=== PATIENT | male | born 1965 | race Hispanic/Latino ===

== ENCOUNTER 2016-06-03 11:08 | Inpatient (IN) | payer OTHER ==
--- NOTE | 2016-06-03 11:31 | Emergency Department Report ---
Stated Complaint: EXTREME STOMACH PAIN Time Seen by Provider: 06/03/16 11:17 - HPI History of Present Illness: 51-year-old male comes in for complaint of extreme stomach pain. Patient reports that he came home 8 some djiboutian fries and a [place] cheese sandwiches started to have epigastric pain. Denies any nausea vomiting no fever no chills. - Exam Physical Exam: Since alert in obvious pain. Abdomen soft and very tender to the mid epigastric . Umbilicus a area. MSE screening note: Focused history and physical exam performed. Due to findings the following was ordered: Abominal order set and ekg was order. Patient will be eval by Main ER ED Disposition for MSE Condition: Stable
[2016-06-03 11:50] LABS: Basophils % (Auto) 0.9 % (0.0-1.8); Eosinophils % (Auto) 1.3 % (0.0-4.3); Hematocrit 42.3 % (35.5-45.6); Hemoglobin 13.9 gm/dl (11.8-15.2); Mean Corpuscular HGB Conc 33 % (32-34); Mean Corpuscular Hemoglobin 32 pg (28-32); Mean Corpuscular Volume 97 fl (84-94); Platelet Count 273 K/mm3 (140-440); Red Blood Count 4.36 M/mm3 (3.65-5.03); Red Cell Distribution Width 13.9 % (13.2-15.2); White Blood Count 7.3 K/mm3 (4.5-11.0)
[2016-06-03 11:59] LABS: INR 1.07 (0.87-1.13)
[2016-06-03 12:00] LABS: Partial Thromboplastin Time 32.1 Sec. (24.2-36.6)
[2016-06-03 12:09] LABS: Creatine Kinase MB 2.1 ng/mL (0.0-4.0)
[2016-06-03 12:11] LABS: Creatine Kinase 137 units/L (55-170)
[2016-06-03 13:08] LABS: Alanine Aminotransferase 10 units/L (7-56); Albumin 4.2 g/dL (3.9-5); Albumin/Globulin Ratio 1.6 %; Alkaline Phosphatase 53 units/L (35-129); BUN/Creatinine Ratio 28.57; Bilirubin,Total < 0.2 mg/dL (0.1-1.2); Blood Urea Nitrogen 20 mg/dL (9-20); Calcium 8.8 mg/dL (8.4-10.2); Carbon Dioxide 23 mmol/L (22-30); Chloride 104.5 mmol/L (98-107); Glucose 126 mg/dL (75-100); Lipase 62 units/L (13-60); Potassium 3.4 mmol/L (3.6-5.0); Sodium 143 mmol/L (137-145); Total Protein 6.8 g/dL (6.3-8.2)
[2016-06-03 13:26] LABS: Anion Gap 19 mmol/L
[2016-06-03] MEDS ORDERED: DILAUDID ONE ×3 (13:35→17:48)
[2016-06-03] MEDS ORDERED: ZOFRAN ONE ×2 (13:35→15:25)
[2016-06-03] MEDS ORDERED: DILAUDID IV ONE ×2 (13:36→15:07)
[2016-06-03] MEDS ORDERED: ZOFRAN IV ONE (13:36)
[2016-06-03] MEDS ORDERED: NACL 0.9% 1000 ML 1,000 ML ONE (13:36)
[2016-06-03] MEDS ORDERED: NACL 0.9% 1000 ML 1,000 ML IV ONE ×2 (13:36→15:07)
[2016-06-03] MEDS ORDERED: VALIUM IV ONE (13:37)
[2016-06-03] MEDS ORDERED: PEPCID IV ONE (13:37)
[2016-06-03] MEDS ORDERED: NACL ONE (14:22)
--- NOTE | 2016-06-03 14:57 | Emergency Department Report ---
HPI - General Chief Complaint: Abdominal Pain Time Seen by Provider: 06/03/16 11:17 - HPI HPI: The patient is a 51-year-old male who presents with abduction abdominal pain. The patient reports sudden onset of severe abdominal pain at 9 AM this morning, constant since onset, 10 out of 10 in severity, throbbing in quality, and is exacerbated with movement of the abdomen. He also reports associated nausea without emesis. He shares that his symptoms began approximately 30 minutes to 1 hour after eating a meal. He was up all night working, but denies trauma to the abdomen. He also denies fever, chills, night sweats, diarrhea, blood in the stool, dark tarry stool, dysuria, hematuria, flank pain, genital discharge, inability to pass flatus. ED Review of Systems ROS: Stated complaint: EXTREME STOMACH PAIN Other details as noted in HPI Constitutional: denies: fever ENT: denies: throat or neck pain Respiratory: denies: cough, shortness of breath Cardiovascular: denies: chest pain Endocrine: denies unexplained weight loss or gain Gastrointestinal: reports abdominal pain, nausea Genitourinary: denies: dysuria Musculoskeletal: denies: leg swelling Skin: denies: rash Neurological: denies: headache Hematological/Lymphatic: denies: easy bleeding or easy bruising Psych: denies sadness or hopelessness Physical Exam - Physical Exam Vital Signs: Vital Signs 06/03/16 06/03/16 06/03/16 11:35 11:48 12:00 Temperature 98.8 F Pulse Rate 103 H Respiratory 21 19 Rate Blood Pressure 106/64 105/72 O2 Sat by Pulse 99 98 Oximetry 06/03/16 06/03/16 06/03/16 13:00 13:01 14:00 Temperature Pulse Rate Respiratory 18 24 27 H Rate Blood Pressure 130/76 123/81 O2 Sat by Pulse 99 98 97 Oximetry Physical Exam: General: well-nourished, well-developed, no acute distress Head: Normocephalic, atraumatic Eyes: normal sclera ENT: Mucous membranes are pink and moist Neck: trachea midline, neck supple, No neck stiffness, no cervical adenopathy Respiratory: Breath sounds equal bilaterally, no wheezing, rales, or rhonchi Cardio: S1 and S2 present, no murmurs, rubs, gallops, capillary refill is brisk Abdomen: Normoactive bowel sounds, patient guarding abdomen, severe tenderness out of proportion present, generalized tenderness to palpation present, rebound tenderness present Chest WALL/Back: No tenderness to palpation of the chest wall, no CVA tenderness with percussion Musc: No pitting edema Skin: No rash Neuro: no facial drooping, normal speech Psych: Normal affect ED Course Vital Signs 06/03/16 06/03/16 06/03/16 11:35 11:48 12:00 Temperature 98.8 F Pulse Rate 103 H Respiratory 21 19 Rate Blood Pressure 106/64 105/72 O2 Sat by Pulse 99 98 Oximetry 06/03/16 06/03/16 06/03/16 13:00 13:01 14:00 Temperature Pulse Rate Respiratory 18 24 27 H Rate Blood Pressure 130/76 123/81 O2 Sat by Pulse 99 98 97 Oximetry ED Medical Decision Making - Lab Data Result diagrams: 06/03/16 11:35 06/03/16 11:35 - Medical Decision Making The patient was seen and examined by myself. The patient is placed on a hospital monitor and continuous pulse ox. On initial evaluation, the patient was found to be in no distress. Evaluation orders were placed. The patient given IV Dilaudid for his pain. 1 L normal saline fluid bolus given. Lab results are grossly unrevealing. CAT scan of the abdomen reveals free intraperitoneal air, ascites, likely secondary to a small bowel perforation. The patient is given Zosyn. The on-call general surgeon Dr. Santoyo was contacted. He agreed to take the patient to the OR for emergent laparotomy. An NG tube was placed and preop labs and imaging were obtained. EKG was grossly unremarkable. X-ray of the chest is unremarkable. The patient is transferred in guarded condition to the operating room. Critical care attestation.: If time is entered above; I have spent that time in minutes in the direct care of this critically ill patient, excluding procedure time. ED Disposition Clinical Impression: Small bowel perforation, Acute generalized abdominal pain Disposition: OP ADMITTED IP TO THIS HOSP Is pt being admited?: Yes Does the pt Need Aspirin: Yes Condition: Critical Referrals: PRIMARY CARE, [Primary Care Provider] - 3-5 Days Time of Disposition: 14:50
[2016-06-03 14:58] LABS: Creatine Kinase MB 1.7 ng/mL (0.0-4.0)
[2016-06-03] MEDS ORDERED: ZOSYN/NS 3.375GM/50ML 50 ML IV SCH (15:00)
--- NOTE | 2016-06-03 15:11 | Cat Scan Report ---
CT ABDOMEN AND PELVIS WITH CONTRAST INDICATION: Periumbilical abdominal pain. COMPARISON: None similar at this institution. FINDINGS: Abdomen and pelvis CT performed following intravenous administration of 100 cc of Omnipaque 300. LUNG BASES: Mild bibasilar dependent atelectasis. Nonspecific distal esophageal wall thickening, not excluded for gastroesophageal reflux and/or hiatal hernia, amongst others. ABDOMEN: Free intraperitoneal air noted, most anterior to the liver with small amount of perihepatic ascites as well. No radiopaque gallstones or renal calculi. Left hepatic lobe tip extends well into the left upper quadrant. Otherwise unremarkable liver, spleen, pancreas, adrenals, nonaneurysmal abdominal aorta with few atherosclerotic calcifications, IVC and non-hydronephrotic kidneys. No size significant adenopathy. Diffuse mesenteric haziness/stranding/edema noted. Nonopacified GI tract evaluation limited. Ingested fluid/debris mildly distends the stomach. Duodenum decompressed. Few jejunal loops in the left hemiabdomen though somewhat prominent/possibly thick walled with caliber of 3.7 cm on axial image 194, series 2 while another just medial to it contains fluid and air with possible mucosal/wall thickening and approximately 3.3 cm caliber as on axial image 193. Few right lower quadrant small bowel loops appear within normal limits. Fluid/slight stool fills the distal/terminal ileum and the ileocecal junction as on axial image 215, series 2. Mild to moderate ascending colon stool. Normal remainder colonic stool with limited distention. PELVIS: Few fluid filled pelvic small bowel loops measure up to 2.6 cm caliber, axial image 323, series 2. Small extraluminal air anteriorly also noted on axial image 320. Mild complex ascites measuring 32 HU, possibly hemorrhagic. Grossly unremarkable urinary bladder and the rectosigmoid. Few prostatic calcifications. Bony demineralization. Lumbar spine straightening with L2-L3 degenerative spurring and mild disc narrowing as also moderate to severe L5-S1 disc narrowing with vacuum phenomenon and mild spurring. CONCLUSION: 1. Pneumoperitoneum with small bowel CT appearance, as detailed above and suspicious for hollow viscus perforation. 2. Various other incidental findings, including small abdomen and pelvic ascites, distal esophageal thickening and few lumbar degenerative changes, amongst others, as above. I phoned the above results to Dr. Durham in the ER, 2:50 PM, 06/03/2016. Thank you for the opportunity to participate in this patient's care.
[2016-06-03] MEDS ORDERED: DIPRIVAN 10 MG/ML IV ONE (15:24)
[2016-06-03] MEDS ORDERED: DECADRON ONE (15:25)
[2016-06-03] MEDS ORDERED: ZEMURON IV ONE ×2 (15:25→17:03)
[2016-06-03] MEDS ORDERED: XYLOCAINE MPF 2% ONE (15:25)
--- NOTE | 2016-06-03 15:31 | Anesthesia Consultation ---
Anesthesia Consult and Med Hx Date of service: 06/03/16 - Airway Anesthetic Teeth Evaluation: Poor ROM Head & Neck: Adequate Mental/Hyoid Distance: Adequate Mallampati Class: Class III Intubation Access Assessment: Probably Good - Pulmonary Exam CTA: Yes - Cardiac Exam Cardiac Exam: RRR - Pre-Operative Health Status ASA Pre-Surgery Classification: ASA2 Proposed Anesthetic Plan: General - Additional Comments Anesthesia Medical History Comments: 51 year old male presenting with exteme stomach pain. WBC 7.3, H/H 13.9/42.3. PLT 273. INR 1.07. K 3.4. NA 143. States NPO since 829
[2016-06-03] MEDS ORDERED: VERSED IV NR (16:00)
[2016-06-03] MEDS ORDERED: LACTATED RINGERS 1,000 ML IV SCH (16:00)
--- NOTE | 2016-06-03 16:22 | Admit Criteria Form ---
Admission Criteria Documentation: ABDOMINAL PAIN Clinical Indications for Admission to Inpatient Care (Place 'X' for any and all applicable criteria): Admission is indicated for ANY ONE of the following(1)(2)(3)(4)(5): [ X]I. Inpatient admission required rather than observation care (Also use Abdominal Pain: Observation Care, as appropriate) because of ANY ONE of the following: [X ]a) Severe pain requiring acute inpatient management [X ]b) Identification of etiology/finding that requires inpatient care (eg, aortic dissection, free air) [ ]c) Absent bowel sounds with complete ileus(6) [ ]d) Suspected toxic megacolon [ ]e) Severe electrolyte abnormalities requiring inpatient care [ ]f) High fever or infection requiring inpatient admission as indicated by ANY ONE of following(7)(8): [ ] i) Appropriate outpatient or observational care antimicrobial treatment unavailable, not effective, or not feasible [ ] ii) Documented bacteremia [ ] iii) Temperature > 104.9 degrees F (oral) [ ] iv) T >103.1 F (oral) or < 96.8 F(rectal) that does not respond to all emergency treatment measures [ ]g) Signs of intestinal obstruction [B] [ ]h) Hemodynamic instability [ ]i) IV fluid to replace significant ongoing losses (greater than 3 L/m2 per day) (12)(13) [ ]j) Percutaneous or open drainage (eg, abscess, biliary tract ) procedures [ ]k) Parenteral nutrition regimen that must be implemented on inpatient basis [ ]l) Other condition,treatment or monitoring requiring inpatient admission. [ X]II. Peritoneal signs present [ ]III. Surgery needed that cannot be performed on an ambulatory basis. [ ]IV. Evaluation requires patient to not eat or drink for extended period ( eg, more than 24 hours). [ ]V. Contraindications and/or Inappropriate clinical situations for Observational Care in patients with abdominal pain, when ANY ONE of the following is required: [ ]a) Thorough evaluation is required to prevent catastrophic events due to delays in diagnosing (e.g.Mesenteric ischemia) 1,3 [ ]b) Patient with severe pathology or with chronic symptoms unlikely to improve in the ED stay (3) [ ]. General contraindications and/or Inappropriate clinical situations for Observational Care in patients with abdominal pain, when ANY ONE of the following is required: [ ]a) Prediction of prolongation of LOS based on ANY ONE of the following may be considered as a contraindication for observational care 2, 3, 4, 5, 6, 7, 8, 9, 10, 11 [ ]i) Age > 65 yrs. [ ]ii) Patient arriving by ambulance [ ]iii) Patient with high acuity [ ]iv) Patient requiring vital sign monitoring [ ]v) Patient on IV medication [ ]b) Systolic blood pressures 180mmHg 3,12 [ ]c) Patient with altered mental status including delirium and other alteration of consciousness, (3) [ ]d) Patient whose discharge disposition will be to a snf home or rehabilitation home should not be managed in Emergency Department Observation Unit. CMS rule requires 3 days hospital stay before such placement.3,13 [ ]e) Patient with failure to thrive due to broad array of etiologies 3,16,17 [ ]f) Inability to ambulate 3,14 Extended stay beyond goal length of stay may be needed for(2)(3): [ ]a) Persistent abdominal pain with suspected intra-abdominal process [ ]b) Diagnosed condition requiring continued stay (e.g., pancreatitis, complicated diverticulitis) [ ]c) Surgery (e.g., colectomy) The original [facility] content created by [employer] has been revised. The portions of the content which have been revised are identified through the use of italic text or in bold, and [facility] has neither reviewed nor approved the modified material.All other unmodified content is copyright [employer]. Please see references footnoted in the original [facility] [employer] edition 2016 Admission Criteria Met: Yes
--- NOTE | 2016-06-03 16:23 | XRay Report ---
PORTABLE CHEST: INDICATION: Chest pain. COMPARISON: CT from earlier today. FINDINGS: Portable, frontal chest radiograph fails to well demonstrate known small pneumoperitoneum. Normal cardiomediastinal silhouette. Clear lungs, given the inspiration. No pleural effusions or CHF. EKG leads. Unremarkable bones. CONCLUSION: No acute chest radiographic abnormality in this patient with known pneumoperitoneum, as described. Thank you for the opportunity to participate in this patient's care.
[2016-06-03] MEDS ORDERED: ePHEDrine SULFATE ONE (16:58)
[2016-06-03] MEDS ORDERED: NACL 0.9% IR ONE (17:15)
[2016-06-03] MEDS ORDERED: ROBINUL ONE (17:30)
[2016-06-03] MEDS ORDERED: BLOXIVERZ ONE (17:31)
[2016-06-03] MEDS ORDERED: ZOFRAN IV PRN (17:40)
[2016-06-03] MEDS ORDERED: VERSED ONE (17:49)
[2016-06-03] MEDS ORDERED: DIFLUCAN 100 ML IV ONE (18:00)
--- NOTE | 2016-06-03 20:09 | Post Anesthesia Evaluation ---
- Post Anesthesia Evaluation Patient Participated: Yes Airway Patent: Yes Stable Respiratory Function: Yes Nausea/Vomiting: No Temp > 96.8F: Yes Pain Manageable: Yes Adequeate Hydration: Yes Anesthesia Complications: No Block Receding Appropriately: Not Applicable Patient on Ventilator: No
--- NOTE | 2016-06-03 21:33 | Operative Report ---
PREOPERATIVE DIAGNOSIS: Acute abdomen, rule out perforated viscus. POSTOPERATIVE DIAGNOSIS: Perforated peptic ulcer. PROCEDURES: Emergency exploratory laparotomy with Alan patch of perforated peptic ulcer. SURGEON: Baljeet Santoyo MD ANESTHESIA: General. ESTIMATED BLOOD LOSS: Minimal. DRAINS: None. COMPLICATIONS: None. DESCRIPTION OF PROCEDURE: The patient was taken to the operating room, prepped and draped in usual sterile fashion. A midline incision was made and abdomen entered. Upon entrance into the abdomen, some bile as well as some cloudy fluid was noted. Aerobic and anaerobic cultures were taken. The entire abdomen was irrigated copiously and suctioned dry. The patient was placed in a reverse Trendelenburg position. The liver was retracted and Babcocks were used to grasp the greater curvature of the stomach. The area around the pylorus was inspected and this was noted to be indurated. A careful inspection revealed a perforation in the prepyloric area. Omentum was then on laid and sutured over the perforation with interrupted 3-0 silk suture. The entire abdomen was once again copiously irrigated and suctioned dry. The patient was kept in a reverse Trendelenburg position as both gutters and subphrenic spaces were irrigated and suctioned. The pelvis was then also once again irrigated and suctioned. Rest of the abdomen was inspected and no other gross abnormalities noted. The NG tube was palpated and confirmed to be in proper placement within the gastric lumen. The fascia was then closed with interrupted #1 Vicryl suture. Subcutaneous tissues irrigated and skin loosely closed with rivera and packed with Telfa krish. The patient tolerated the procedure well and left the OR in stable condition. JOB# [id number] RISHABH/JOHN
[2016-06-03 21:39] LABS: Creatine Kinase MB 1.4 ng/mL (0.0-4.0)
[2016-06-03] MEDS: PROTONIX IV SCH (21:54)
[2016-06-03] MEDS: ZOSYN/NS 4.5GM/100ML 100 ML IV SCH (21:56)
--- NOTE | 2016-06-03 22:46 | History and Physical Report ---
REASON FOR ADMISSION: Acute abdomen. HISTORY OF PRESENT ILLNESS: The patient is a 51-year-old healthy gentleman who presented to Emergency Room with recent onset of severe abdominal pain. Denied any nausea or vomiting. PAST MEDICAL HISTORY: Negative. PAST SURGICAL HISTORY: Status post removal of subcutaneous cyst of the left neck. ALLERGIES: No known allergies. MEDICATIONS: No medications. FAMILY HISTORY: Negative. SOCIAL HISTORY: Smokes 2 packs a day for 37 years. Denies any ethanol intake. REVIEW OF SYSTEMS: Noncontributory. PHYSICAL EXAMINATION: GENERAL: At this time reveals the patient to be awake, alert, cooperative, in obvious distress. VITAL SIGNS: Temperature is not currently in the computer. Blood pressure is 118/85. Pulse is not in the computer either. Respiratory rate is 16. HEENT: Pupils are equal and reactive to light and accommodation. Sclerae nonicteric. NECK: Supple, no thyromegaly or adenopathy. CHEST: Lungs clear to auscultation. HEART: Normal sinus rhythm. No gross murmurs. ABDOMEN: Examination of the abdomen reveals to be flat and rigid with generalized tenderness. Bowel sounds are absent. EXTREMITIES: Show full range of motion x 4. NEUROLOGIC: Grossly within normal limits. LABORATORY DATA: Lab work at present includes a CBC which shows a white count of 7.3, H and H is 13.9 and 42.3. Electrolytes were essentially within normal limits. LFTs are also within normal limits. Lipase is 62. A CT scan of the abdomen has been performed, which I have reviewed with the radiologist. CT shows pneumoperitoneum, most likely perforation somewhere in the mid small bowel. Some ascites is also noted again presumably from the bowel perforation. IMPRESSION: At this time is that of a 51-year-old gentleman, rule out perforated viscus. Plan is to proceed with emergency exploratory laparotomy. Indications, risks, and complications have been reviewed with the patient who understands and has signed his consent. JOB# [id number] RISHABH/JOHN
[2016-06-04] MEDS: ZOSYN/NS 4.5GM/100ML 100 ML IV SCH ×3 (05:09→22:29)
[2016-06-04 05:35] LABS: Basophils % (Auto) 0.1 % (0.0-1.8); Hematocrit 35.3 % (35.5-45.6); Hemoglobin 11.8 gm/dl (11.8-15.2); Mean Corpuscular HGB Conc 34 % (32-34); Mean Corpuscular Hemoglobin 32 pg (28-32); Mean Corpuscular Volume 97 fl (84-94); Platelet Count 196 K/mm3 (140-440); Red Blood Count 3.65 M/mm3 (3.65-5.03); Red Cell Distribution Width 14.1 % (13.2-15.2)
[2016-06-04 05:51] LABS: Alanine Aminotransferase 18 units/L (7-56); Albumin 3.3 g/dL (3.9-5); Albumin/Globulin Ratio 1.3 %; Alkaline Phosphatase 38 units/L (35-129); Anion Gap 17 mmol/L; Bilirubin,Total 0.2 mg/dL (0.1-1.2); Blood Urea Nitrogen 15 mg/dL (9-20); Carbon Dioxide 24 mmol/L (22-30); Chloride 104.2 mmol/L (98-107); Glucose 135 mg/dL (75-100); Potassium 4.2 mmol/L (3.6-5.0); Sodium 141 mmol/L (137-145); Total Protein 5.8 g/dL (6.3-8.2)
[2016-06-04] MEDS: DILAUDID IV PRN ×4 (08:52→22:30)
[2016-06-04] MEDS: PROTONIX IV SCH (09:25)
[2016-06-04] MEDS ORDERED: DIFLUCAN/NS 100 MG/50 ML 50 ML IV SCH (10:00)
--- NOTE | 2016-06-04 10:44 | Consultation ---
History of Present Illness - Reason for Consult Consult date: 06/04/16 perforated bowel - History of Present Illness Mr. Burns is a 51-year-old male who denies chronic medical problems and presents for admission to with a 1 day history of severe abdominal pain and nausea. CT of the abdomen showed a pneumoperitoneum probably secondary to small bowel perforation. He underwent surgery now with evidence of a perforated peptic ulcer. The patient has no known previous history of GI disorders. He was unaware of any history of ulcer disease. He described sharp lower abdominal pain > 10/10 in intensity. Preliminary lab data now includes a white count of 9.0 with hemoglobin of 11.8 and platelet count of 196,000. MCV is elevated. Blood sugars is slightly elevated to 135. Lipase is 62. Patient's abdominal CT otherwise showed changes of DJD of the lumbosacral spine. There was also described distal esophageal "thickening". The patient is currently on IV Diflucan and Zosyn and is seen for further antibiotic recommendations. Medications and Allergies Allergies Allergy/AdvReac Type Severity Reaction Status Date / Time No Known Allergies Allergy Unverified 06/03/16 11:18 Home Medications Medication Instructions Recorded Confirmed Last Taken Type No Known Home Medications [No 06/03/16 06/03/16 Unknown History Reported Home Medications] Active Meds: Active Medications Hydromorphone HCl (Dilaudid) 1 mg IV Q3H PRN PRN Reason: Pain , Severe (7-10) Stop: 06/08/16 23:59 Last Admin: 06/04/16 08:52 Dose: 1 mg Lactated Ringer's (Lactated Ringers) 1,000 mls @ 150 mls/hr IV DIRECT PREET Potassium Chloride/Dextrose/Sod Cl (D5w/0.45% Nacl/Kcl 30 Meq) 1,000 mls @ 125 mls/hr IV DIRECT PREET Piperacillin Sod/Tazobactam Sod (Zosyn/Ns 4.5gm/100ml) 100 mls @ 200 mls/hr IV Q8HR PREET PRN Reason: Protocol Stop: 06/10/16 21:59 Last Admin: 06/04/16 05:09 Dose: 200 mls/hr Fluconazole (Diflucan/Ns 100 Mg/50 Ml) 50 mls @ 50 mls/hr IV Q24HR PREET Last Admin: 06/04/16 09:25 Dose: 50 mls/hr Ondansetron HCl (Zofran) 4 mg IV Q4H PRN PRN Reason: N/V unrelieved by Reglan Pantoprazole Sodium (Protonix) 40 mg IV QDAY PREET Last Admin: 06/04/16 09:25 Dose: 40 mg Review of Systems Gastrointestinal: abdominal pain, nausea Physical Examination - Physical Exam Narrative exam: Thin male seen postoperatively. NG tube in place. No distress. Abdominal dressings not disturbed. HEENT: Pupils are equal reactive to light and accommodation. Conjunctiva clear. Oropharynx is normal with no evidence of oral candidiasis or pharyngitis. Poor dentition noted. NECK: Supple. No enlargement of the thyroid gland. No significant cervical lymphadenopathy. No jugular venous distention at 30. LUNGS: Clear with no adventitious sounds. HEART: Regular rate. S1 and S2 are normal. There are no murmurs, gallops, clicks or rubs heard. ABDOMEN: Soft with mild generalized tenderness. Abdominal wound dressings are dry. No obvious organomegaly or masses. Bowel sounds not heard. EXTREMITIES: No rash, peripheral lymphadenopathy, clubbing or edema. SKIN: No other rash, ulcers or wounds. NEUROLOGIC: No focal findings. Alert and oriented. - Constitutional Vitals: Vital Signs Temp Pulse Resp BP Pulse Ox 98 F 90 16 133/86 97 06/04/16 07:15 06/04/16 07:15 06/04/16 08:52 06/04/16 07:15 06/04/16 07:15 Temperature -Last 24 Hours Temperature 98 F Temperature 98.5 F Temperature 99.2 F Temperature 97.6 F Temperature 98.6 F Temperature 99.6 F Results - Labs CBC & Chem 7: 06/04/16 04:47 06/04/16 04:47 Labs: Abnormal lab results 06/04/16 06/04/16 Range/Units 04:47 04:47 Hct 35.3 L D (35.5-45.6) % MCV 97 H (84-94) fl Lymph % (Auto) 5.1 L (13.4-35.0) % Lymph # 0.5 L (1.2-5.4) K/mm3 Seg Neutrophils % 88.0 H (40.0-70.0) % Seg Neutrophils # 7.9 H (1.8-7.7) K/mm3 Creatinine 0.5 L (0.8-1.5) mg/dL Glucose 135 H (75-100) mg/dL Calcium 8.0 L (8.4-10.2) mg/dL Total Protein 5.8 L (6.3-8.2) g/dL Albumin 3.3 L (3.9-5) g/dL Assessment and Plan Assessment: Mr. Burns is a 51-year-old male who denies chronic medical problems and presents for admission to with a 1 day history of severe abdominal pain and nausea. CT of the abdomen showed a pneumoperitoneum probably secondary to small bowel perforation. He underwent surgery now with evidence of a perforated peptic ulcer. Antibiotics: Diflucan 100 mg IV daily ( 06/04 - > Zosyn 4.5 g IV every 8 hour ( 06/03 - > Immunosuppressants: Decadron 20 mg IV 1 dose ( 06/03) Conclusions: 1. S/P exploratory laparotomy with finding of perforated peptic ulcer -R/O peritonitis 2. DJD - lumbar/sacral spine 3. Hyperglycemia- R/O "Stress" response versus occult DM 4. Anemia 5. Esophageal thickening by CT - ? Significance 6. Poor dentition Recommendations: - Continue IV Zosyn. Continue Diflucan at increased dose of 200 mg IV daily - Will check hemoglobin A1c level - Check B12 and folate levels with evidence of mild anemia and increased MCV - Consider upper endoscopy at a later time with evaluation of esophageal changes . - Continue supportive care.
[2016-06-04] MEDS ORDERED: DIFLUCAN 100 ML IV SCH (11:00)
[2016-06-04] MEDS ORDERED: FLUARIX QUAD 2016-2017(36 MOS+) IM ONE (11:01)
[2016-06-04] MEDS: D5W/0.45% NACL/KCL 30 MEQ 1,000 ML IV SCH ×2 (12:00→21:29)
--- NOTE | 2016-06-04 12:31 | Progress Note ---
Assessment and Plan POD # 1 Pt overall feeling well without any specific compl. Abd soft. dressings dry labs as below. stable monitor h/h ID eval appreciated Diflucan increased to 200 mg qd IS q 2 hrs ambulate as norbert f/u cbc now & in am Selected Entries 06/04/16 06/04/16 06/04/16 07:15 10:00 12:13 Temperature 98 F Respiratory 20 Rate Respiratory 16 Rate [Abdomen] Blood Pressure 133/86 [Left Arm] Laboratory Tests 06/04/16 04:47 WBC 9.0 Hgb 11.8 Hct 35.3 L D Objective Vital Signs - 12hr 06/04/16 06/04/16 06/04/16 01:10 01:40 05:01 Temperature 97.6 F 99.2 F 98.5 F Pulse Rate [ 96 H 94 H 98 H Brachial] Respiratory 20 20 20 Rate Respiratory Rate [Abdomen] Blood Pressure 130/84 121/76 127/83 [Left Arm] O2 Sat by Pulse 99 97 100 Oximetry 06/04/16 06/04/16 06/04/16 07:15 08:52 09:22 Temperature 98 F Pulse Rate [ 90 Brachial] Respiratory 18 16 16 Rate Respiratory Rate [Abdomen] Blood Pressure 133/86 [Left Arm] O2 Sat by Pulse 97 Oximetry 06/04/16 06/04/16 10:00 12:13 Temperature Pulse Rate [ Brachial] Respiratory 20 Rate Respiratory 16 Rate [Abdomen] Blood Pressure [Left Arm] O2 Sat by Pulse Oximetry - Labs 06/04/16 04:47 06/04/16 04:47 Diabetes panel 06/04/16 06/04/16 Range/Units 04:47 11:10 Sodium 141 (137-145) mmol/L Potassium 4.2 D (3.6-5.0) mmol/L Chloride 104.2 (98-107) mmol/L Carbon Dioxide 24 (22-30) mmol/L BUN 15 (9-20) mg/dL Creatinine 0.5 L (0.8-1.5) mg/dL Glucose 135 H (75-100) mg/dL Hemoglobin A1c 5.5 (4-6) % Calcium 8.0 L (8.4-10.2) mg/dL AST 22 (5-40) units/L ALT 18 (7-56) units/L Alkaline Phosphatase 38 (35-129) units/L Total Protein 5.8 L (6.3-8.2) g/dL Albumin 3.3 L (3.9-5) g/dL Calcium panel 06/04/16 Range/Units 04:47 Calcium 8.0 L (8.4-10.2) mg/dL Albumin 3.3 L (3.9-5) g/dL Pituitary panel 06/04/16 Range/Units 04:47 Sodium 141 (137-145) mmol/L Potassium 4.2 D (3.6-5.0) mmol/L Chloride 104.2 (98-107) mmol/L Carbon Dioxide 24 (22-30) mmol/L BUN 15 (9-20) mg/dL Creatinine 0.5 L (0.8-1.5) mg/dL Glucose 135 H (75-100) mg/dL Calcium 8.0 L (8.4-10.2) mg/dL Adrenal panel 06/04/16 Range/Units 04:47 Sodium 141 (137-145) mmol/L Potassium 4.2 D (3.6-5.0) mmol/L Chloride 104.2 (98-107) mmol/L Carbon Dioxide 24 (22-30) mmol/L BUN 15 (9-20) mg/dL Creatinine 0.5 L (0.8-1.5) mg/dL Glucose 135 H (75-100) mg/dL Calcium 8.0 L (8.4-10.2) mg/dL Total Bilirubin 0.2 (0.1-1.2) mg/dL AST 22 (5-40) units/L ALT 18 (7-56) units/L Alkaline Phosphatase 38 (35-129) units/L Total Protein 5.8 L (6.3-8.2) g/dL Albumin 3.3 L (3.9-5) g/dL
[2016-06-04 13:53] LABS: Basophils % (Auto) 0.1 % (0.0-1.8); Hematocrit 37.5 % (35.5-45.6); Hemoglobin 12.3 gm/dl (11.8-15.2); Mean Corpuscular HGB Conc 33 % (32-34); Mean Corpuscular Hemoglobin 32 pg (28-32); Mean Corpuscular Volume 97 fl (84-94); Platelet Count 223 K/mm3 (140-440); Red Blood Count 3.87 M/mm3 (3.65-5.03); White Blood Count 10.5 K/mm3 (4.5-11.0)
[2016-06-04 17:30] LABS: Bilirubin,Urine NEG (Negative); Blood,Urine SM (Negative); Ketones,Urine NEG (Negative); Leukocyte Esterase,Urine MOD (Negative); Mucus,Urine FEW /HPF; Nitrite,Urine NEG (Negative); Protein,Urine <15 mg/dL mg/dL (Negative); Urobilinogen,Urine < 2.0 mg/dL (<2.0)
[2016-06-05] MEDS: DILAUDID IV PRN ×4 (04:48→20:26)
[2016-06-05] MEDS: D5W/0.45% NACL/KCL 30 MEQ 1,000 ML IV SCH ×2 (06:26→17:30)
[2016-06-05] MEDS: ZOSYN/NS 4.5GM/100ML 100 ML IV SCH ×3 (06:26→23:35)
[2016-06-05 06:32] LABS: Basophils % (Auto) 0.2 % (0.0-1.8); Eosinophils % (Auto) 0.8 % (0.0-4.3); Hematocrit 35.1 % (35.5-45.6); Hemoglobin 11.6 gm/dl (11.8-15.2); Mean Corpuscular HGB Conc 33 % (32-34); Mean Corpuscular Hemoglobin 32 pg (28-32); Mean Corpuscular Volume 96 fl (84-94); Platelet Count 202 K/mm3 (140-440); Red Blood Count 3.66 M/mm3 (3.65-5.03); Red Cell Distribution Width 13.7 % (13.2-15.2); White Blood Count 7.5 K/mm3 (4.5-11.0)
[2016-06-05 06:57] LABS: Alanine Aminotransferase 14 units/L (7-56); Albumin 3.2 g/dL (3.9-5); Albumin/Globulin Ratio 1.1 %; Alkaline Phosphatase 44 units/L (35-129); Anion Gap 16 mmol/L; Bilirubin,Total 0.3 mg/dL (0.1-1.2); Blood Urea Nitrogen 13 mg/dL (9-20); Calcium 8.3 mg/dL (8.4-10.2); Carbon Dioxide 24 mmol/L (22-30); Chloride 100.1 mmol/L (98-107); Glucose 99 mg/dL (75-100); Potassium 4.4 mmol/L (3.6-5.0); Sodium 136 mmol/L (137-145)
[2016-06-05] MEDS: DIFLUCAN 100 ML IV SCH (09:08)
[2016-06-05] MEDS: PROTONIX IV SCH (09:09)
--- NOTE | 2016-06-05 09:46 | Progress Note ---
Assessment and Plan Assessment: Mr. Burns is a 51-year-old male who denies chronic medical problems and presents for admission to with a 1 day history of severe abdominal pain and nausea. CT of the abdomen showed a pneumoperitoneum probably secondary to small bowel perforation. He underwent surgery now with evidence of a perforated peptic ulcer. POD#2 Antibiotics: Diflucan 100 mg IV daily ( 06/04 - > Zosyn 4.5 g IV every 8 hour ( 06/03 - > Immunosuppressants: Decadron 20 mg IV 1 dose ( 06/03) Conclusions: 1. S/P exploratory laparotomy with finding of perforated peptic ulcer -R/O peritonitis -Surgical culture with no growth. Gram stain showing few polys without organisms. -"Cloudy fluid" seen at surgery. 2. DJD - lumbar/sacral spine 3. Hyperglycemia- R/O "Stress" response versus occult DM -Hemoglobin A1c 5.5 4. Anemia -B12 level normal 346, folate level slightly low - 7 mg 5. Esophageal thickening by CT - ? Significance 6. Poor dentition Recommendations: - Continue IV Zosyn. Continue Diflucan at dose of 200 mg IV daily - Consider upper endoscopy at a later time with evaluation of esophageal changes . - Give folate supplement when patient taking by mouth. - Continue supportive care. Subjective Date of service: 06/05/16 Interval history: Describes anterior abdominal pain when he coughs. Otherwise no complaints. Objective - Exam Narrative Exam: Thin male seen postoperatively. NG tube in place. No distress. Abdominal dressings not disturbed. HEENT: Pupils are equal reactive to light and accommodation. Conjunctiva clear. Oropharynx is normal with no evidence of oral candidiasis or pharyngitis. Poor dentition noted. NG tube in place. NECK: Supple. No enlargement of the thyroid gland. No significant cervical lymphadenopathy. No jugular venous distention at 30. LUNGS: Clear with no adventitious sounds. HEART: Regular rate. S1 and S2 are normal. There are no murmurs, gallops, clicks or rubs heard. ABDOMEN: Soft with mild generalized tenderness. Abdominal wound dressings are dry. No obvious organomegaly or masses. Bowel sounds heard. EXTREMITIES: No rash, peripheral lymphadenopathy, clubbing or edema. SKIN: No other rash, ulcers or wounds. NEUROLOGIC: No focal findings. Alert and oriented. - Constitutional Vitals: Vital Signs Temp Pulse Resp BP Pulse Ox 98.2 F 78 16 131/75 95 06/05/16 08:00 06/05/16 08:00 06/05/16 09:09 06/05/16 08:00 06/05/16 08:00 Temperature -Last 24 Hours Temperature 98.2 F Temperature 98.0 F Temperature 98.1 F Temperature 97.4 F Temperature 97.7 F Temperature 98.1 F - Labs CBC & Chem 7: 06/05/16 06:07 06/05/16 06:07 Labs: Abnormal lab results 06/04/16 06/04/16 06/04/16 Range/Units 11:10 11:20 13:17 Hgb (11.8-15.2) gm/dl Hct (35.5-45.6) % MCV 97 H (84-94) fl Lymph % (Auto) 7.1 L (13.4-35.0) % [place] % (Auto) 7.4 H (0.0-7.3) % Lymph # 0.8 L (1.2-5.4) K/mm3 Seg Neutrophils % 85.4 H (40.0-70.0) % Seg Neutrophils # 9.0 H (1.8-7.7) K/mm3 Sodium (137-145) mmol/L Creatinine (0.8-1.5) mg/dL Calcium (8.4-10.2) mg/dL Total Protein (6.3-8.2) g/dL Albumin (3.9-5) g/dL Folate 7.00 L (7.3-26.0) ng/mL Urine WBC (Auto) 80.0 H (0.0-6.0) /HPF 06/05/16 06/05/16 Range/Units 06:07 06:07 Hgb 11.6 L (11.8-15.2) gm/dl Hct 35.1 L (35.5-45.6) % MCV 96 H (84-94) fl Lymph % (Auto) 7.5 L (13.4-35.0) % [place] % (Auto) 8.9 H (0.0-7.3) % Lymph # 0.6 L (1.2-5.4) K/mm3 Seg Neutrophils % 82.6 H (40.0-70.0) % Seg Neutrophils # (1.8-7.7) K/mm3 Sodium 136 L (137-145) mmol/L Creatinine 0.5 L (0.8-1.5) mg/dL Calcium 8.3 L (8.4-10.2) mg/dL Total Protein 6.0 L (6.3-8.2) g/dL Albumin 3.2 L (3.9-5) g/dL Folate (7.3-26.0) ng/mL Urine WBC (Auto) (0.0-6.0) /HPF
--- NOTE | 2016-06-05 12:32 | Progress Note ---
Assessment and Plan POD #2 Pt feeling well without compl. ambulated down halls Abd soft. dressings dry - BS surgically stable continue present care Selected Entries 06/05/16 06/05/16 08:00 09:09 Temperature 98.2 F Pulse Rate [ 78 Brachial] Respiratory 16 Rate Blood Pressure 131/75 [Left Arm] Laboratory Tests 06/05/16 06/05/16 06:07 06:07 Hgb 11.6 L Hct 35.1 L Sodium 136 L Potassium 4.4 Chloride 100.1 Carbon Dioxide 24 BUN 13 Creatinine 0.5 L Objective Vital Signs - 12hr 06/05/16 06/05/16 06/05/16 01:19 05:50 08:00 Temperature 98.1 F 98.0 F 98.2 F Pulse Rate [ 88 83 78 Brachial] Respiratory 20 20 18 Rate Blood Pressure 117/73 121/82 131/75 [Left Arm] O2 Sat by Pulse 100 100 95 Oximetry 06/05/16 09:09 Temperature Pulse Rate [ Brachial] Respiratory 16 Rate Blood Pressure [Left Arm] O2 Sat by Pulse Oximetry - Labs 06/05/16 06:07 06/05/16 06:07 Diabetes panel 06/05/16 Range/Units 06:07 Sodium 136 L (137-145) mmol/L Potassium 4.4 (3.6-5.0) mmol/L Chloride 100.1 (98-107) mmol/L Carbon Dioxide 24 (22-30) mmol/L BUN 13 (9-20) mg/dL Creatinine 0.5 L (0.8-1.5) mg/dL Glucose 99 (75-100) mg/dL Calcium 8.3 L (8.4-10.2) mg/dL AST 18 (5-40) units/L ALT 14 (7-56) units/L Alkaline Phosphatase 44 (35-129) units/L Total Protein 6.0 L (6.3-8.2) g/dL Albumin 3.2 L (3.9-5) g/dL Calcium panel 06/05/16 Range/Units 06:07 Calcium 8.3 L (8.4-10.2) mg/dL Albumin 3.2 L (3.9-5) g/dL Pituitary panel 06/05/16 Range/Units 06:07 Sodium 136 L (137-145) mmol/L Potassium 4.4 (3.6-5.0) mmol/L Chloride 100.1 (98-107) mmol/L Carbon Dioxide 24 (22-30) mmol/L BUN 13 (9-20) mg/dL Creatinine 0.5 L (0.8-1.5) mg/dL Glucose 99 (75-100) mg/dL Calcium 8.3 L (8.4-10.2) mg/dL Adrenal panel 06/05/16 Range/Units 06:07 Sodium 136 L (137-145) mmol/L Potassium 4.4 (3.6-5.0) mmol/L Chloride 100.1 (98-107) mmol/L Carbon Dioxide 24 (22-30) mmol/L BUN 13 (9-20) mg/dL Creatinine 0.5 L (0.8-1.5) mg/dL Glucose 99 (75-100) mg/dL Calcium 8.3 L (8.4-10.2) mg/dL Total Bilirubin 0.3 (0.1-1.2) mg/dL AST 18 (5-40) units/L ALT 14 (7-56) units/L Alkaline Phosphatase 44 (35-129) units/L Total Protein 6.0 L (6.3-8.2) g/dL Albumin 3.2 L (3.9-5) g/dL
--- NOTE | 2016-06-05 14:02 | Query- Peritonitis ---
Dear Date:06/05/16 Front Window Cashier/CDS:Lawrence Bell Phone#: Exercise your independent professional judgment when responding to query. Questions asked do not imply a particular answer is desired or expected. We greatly appreciate your clarification on this issue. Clinical Documentation States: 51 y/o m admitted 06/03/16 for severe abdominal pain. Patient underwent exploratory laparotomy and found perforated bowel. On admission on physical exam patient was noted to have, "guarding and rebound tenderness". (Dr. Durham, ED note, 06/03/16). According to Dr. Hensley in assessment and plan in both progress notes on and 06/05/16, "rule out peritonitis". Patient was treated with diflucan, decadron and zosyn. Clinical Findings Show: -Patient was treated with diflucan, decadron and zosyn. -Patient admitted with guarding and rebound tenderness -Infectious disease r/o peritonitis -patient underwent exploratory laparatomy adn found perforated bowel Please clarify: [ ] Localized peritonitis [ ] Peritoneal inflammation [ ] Generalized peritonitis [ ] Peritoneal infection [ ] Retroperitoneal infection [ ] Peritoneal irritation [ ] Retroperitoneal inflammation [ ] Omentitis [ ] Other: [ ] Comment/Explanation: Present on Admission: [ ] Yes (Y) [ ] Clinically undeterminable (W) [ ] No (N) Please also document response in your Progress Notes and/or Discharge Summary and indicate if the condition was present on admission. MTDD
[2016-06-06] MEDS: D5W/0.45% NACL/KCL 30 MEQ 1,000 ML IV SCH (05:00)
[2016-06-06] MEDS: DILAUDID IV PRN (05:57)
[2016-06-06] MEDS: ZOSYN/NS 4.5GM/100ML 100 ML IV SCH ×3 (06:02→22:15)
--- NOTE | 2016-06-06 10:41 | Progress Note ---
Assessment and Plan PODd # 3 Pt feeling well without compl Abd soft. surgically stable continue present care Selected Entries 06/06/16 08:00 Temperature 98.3 F Pulse Rate [ 80 Apical] Respiratory 20 Rate Blood Pressure 115/80 [Left Arm] Objective Vital Signs - 12hr 06/05/16 06/06/16 06/06/16 23:00 00:43 05:57 Temperature 98.2 F Pulse Rate [ Apical] Pulse Rate [ 75 Brachial] Respiratory 20 20 20 Rate Blood Pressure 126/82 [Left Arm] O2 Sat by Pulse 100 100 Oximetry 06/06/16 06/06/16 06:50 08:00 Temperature 98.4 F 98.3 F Pulse Rate [ 80 Apical] Pulse Rate [ 76 Brachial] Respiratory 20 20 Rate Blood Pressure 121/83 115/80 [Left Arm] O2 Sat by Pulse 100 100 Oximetry - Labs 06/05/16 06:07 06/05/16 06:07
--- NOTE | 2016-06-06 11:31 | Progress Note ---
Assessment and Plan Current antibiotics: Diflucan 100 mg IV q24h 06/04 --> Zosyn 4.5 g IV q8h 06/03 --> Immunosuppressants: Decadron 20 mg IV 1 dose (06/03) ASSESSMENT: Melvin Burns is a 51-year-old male with no chronic medical problems who was admitted to [facility] on with a 1 day history of severe abdominal pain and nausea and a CT of the abdomen showed a pneumoperitoneum. He taken to the OR and found to have a perforated prepyloric peptic ulcer. Antibiotics: Diflucan 100 mg IV daily ( 06/04 - > Zosyn 4.5 g IV every 8 hour ( 06/03 - > Immunosuppressants: Decadron 20 mg IV 1 dose ( 06/03) Problem list: 1. Perforated prepyloric peptic ulcer -S/P exploratory laparotomy and Alan patching -"Cloudy fluid" described. R/O peritonitis -Surgical culture with no growth. Gram stain showing few polys without organisms. 2. DJD -Lumbar/sacral spine 3. Hyperglycemia- R/O "Stress" response versus occult DM -Hemoglobin A1c 5.5 4. Anemia -B12 level normal 346, folate level slightly low - 7 mg 5. Esophageal thickening by CT - ? Significance 6. Poor dentition PLAN: 1. Continue IV Zosyn and fluconazole 2. Await finalization of anaerobic cultures (NGTD) 3 Consider upper endoscopy at a later time with evaluation of esophageal changes scribed on CT. 4 Give folate supplement when patient taking by mouth. 5 Continue supportive care. Peña Maharaj MD [facility] Office: [phone] Subjective Date of service: 06/06/16 Principal diagnosis: Perforated prepyloric ulcer; peritonitis Interval history: Complaining of "severe" pain which is relieved by pain medications. Not pass flatus nor had a bowel movement as of yet. No other complaints. ROS: No subjective fever or chills. No nausea, vomiting or diarrhea. No shortness of breath, cough or pleuritic chest pain Objective - Exam Narrative Exam: GENERAL: Well-developed, somewhat disheveled appearing, thin male was alert and complaining of pain. HEENT: Pupils are equal reactive to light and accommodation. Conjunctiva clear. Oropharynx is normal with no evidence of oral candidiasis or pharyngitis. Poor dentition. NG tube in place. NECK: Supple. No enlargement of the thyroid gland. No significant cervical lymphadenopathy. No jugular venous distention at 30. LUNGS: Clear with no adventitious sounds. HEART: Regular rate. S1 and S2 are normal. There are no murmurs, gallops, clicks or rubs heard. ABDOMEN: Soft, mildly distended with moderate incisional tenderness. Abdominal wound dressings intact. Signs present but hypoactive. EXTREMITIES: No rash, peripheral lymphadenopathy, clubbing or edema. SKIN: No other rash, ulcers or wounds. NEUROLOGIC: No focal findings. Alert and oriented. - Constitutional Vitals: Vital Signs Temp Pulse Resp BP Pulse Ox 98.3 F 80 20 115/80 100 06/06/16 08:00 06/06/16 08:00 06/06/16 08:00 06/06/16 08:00 06/06/16 08:00 Temperature -Last 24 Hours Temperature 98.3 F Temperature 98.4 F Temperature 98.2 F Temperature 97.9 F Temperature 98.3 F - Labs CBC & Chem 7: 06/05/16 06:07 06/05/16 06:07 Labs: Microbiology 06/03/16 Unknown Peritoneal Fluid Surgical Culture - no growth. Gram stain with few PMNs and no organisms seen 06/03/16 Unknown Peritoneal Fluid Anaerobic Culture - Pending 06/03/16 15:12 Peripheral/Venous Blood Culture - Preliminary NO GROWTH AFTER 48 HOURS 06/03/16 15:12 Peripheral/Venous Blood Culture - Preliminary NO GROWTH AFTER 48 HOURS
[2016-06-06] MEDS: DIFLUCAN 100 ML IV SCH (12:03)
[2016-06-06] MEDS: PROTONIX IV SCH (12:04)
[2016-06-07] MEDS: D5W/0.45% NACL/KCL 30 MEQ 1,000 ML IV SCH (00:38)
[2016-06-07] MEDS: ZOSYN/NS 4.5GM/100ML 100 ML IV SCH ×3 (06:15→22:00)
[2016-06-07] MEDS: PROTONIX IV SCH (10:17)
[2016-06-07] MEDS: DIFLUCAN 100 ML IV SCH (10:17)
--- NOTE | 2016-06-07 12:16 | Progress Note ---
Assessment and Plan POD # 4 Pt feeling well. Sitting in chair. pulled ng Abd soft. stable ice chips today Selected Entries 06/06/16 16:30 Temperature 98.4 F Pulse Rate [ 84 Apical] Respiratory 16 Rate Blood Pressure 123/75 [Left Arm] Objective - Labs 06/05/16 06:07 06/05/16 06:07
--- NOTE | 2016-06-07 13:56 | Progress Note ---
Assessment and Plan Current antibiotics: Diflucan 100 mg IV q24h 06/04 --> Zosyn 4.5 g IV q8h 06/03 --> Immunosuppressants: Decadron 20 mg IV 1 dose (06/03) ASSESSMENT: Melvin Burns is a 51-year-old male with no chronic medical problems who was admitted to [facility] on with a 1 day history of severe abdominal pain and nausea and a CT of the abdomen showed a pneumoperitoneum. He was taken to the OR and found to have a perforated prepyloric peptic ulcer. Problem list: 1. Perforated prepyloric peptic ulcer -S/P exploratory laparotomy and Alan patching -"Cloudy fluid" described. R/O peritonitis -Surgical culture with no growth. Gram stain showing few polys without organisms. --on empiric coverage with antibiotics including antifungal in view of fungal species can colonized upper GI 2. DJD -Lumbar/sacral spine 3. Hyperglycemia- R/O "Stress" response versus occult DM -Hemoglobin A1c 5.5 4. Anemia -B12 level normal 346, folate level slightly low - 7 mg 5. Esophageal thickening by CT - ? Significance 6. Poor dentition PLAN: 1. Continue Zosyn and fluconazole 2. Await finalization of anaerobic cultures (NGTD) 3 Consider upper endoscopy at a later time with evaluation of esophageal changes scribed on CT. Subjective Date of service: 06/07/16 Principal diagnosis: Perforated prepyloric ulcer; peritonitis Interval history: Patient is without new complaints, he said his abdominal pain is controlled Objective - Constitutional Vitals: Selected Entries 06/06/16 16:30 Temperature 98.4 F Pulse Rate [ 84 Apical] Respiratory 16 Rate O2 Sat by Pulse 99 Oximetry Blood Pressure 123/75 [Left Arm] Blood Pressure 91 Mean [Left Arm] General appearance: Present: no acute distress, cachectic - EENT Eyes: PERRL, EOM intact, no scleral icterus, no conjunctival injection ENT: hearing intact, clear oral mucosa, poor dentition Ears: bilateral: normal - Neck Neck: supple, normal ROM, no enlarged thyroid, no masses or JVD - Respiratory Respiratory effort: normal Respiratory: bilateral: CTA - Breasts Breasts: deferred - Cardiovascular Rhythm: regular Heart Sounds: Present: S1 & S2 Extremities: no ischemia, No edema - Gastrointestinal General gastrointestinal: Present: soft, other (midline surgical site with rivera, mild erythema) Rectal Exam: deferred - Genitourinary Male genitourinary: normal - Integumentary Integumentary: clear, warm, dry - Labs CBC & Chem 7: 06/05/16 06:07 06/05/16 06:07 Labs: Microbiology 06/03/16 Unknown Peritoneal Fluid Surgical Culture - Final 06/03/16 Unknown Peritoneal Fluid Anaerobic Culture - Preliminary 06/03/16 15:12 Peripheral/Venous Blood Culture - Preliminary NO GROWTH AFTER 72 HOURS 06/03/16 15:12 Peripheral/Venous Blood Culture - Preliminary NO GROWTH AFTER 72 HOURS Laboratory Tests 06/05/16 06/05/16 06:07 06:07 WBC 7.5 Plt Count 202 Sodium 136 L Creatinine 0.5 L
[2016-06-08] MEDS: D5W/0.45% NACL/KCL 30 MEQ 1,000 ML IV SCH ×3 (02:19→22:10)
[2016-06-08] MEDS: ZOSYN/NS 4.5GM/100ML 100 ML IV SCH ×3 (06:30→22:40)
[2016-06-08] MEDS: PROTONIX IV SCH (09:56)
[2016-06-08] MEDS: DIFLUCAN 100 ML IV SCH (09:56)
[2016-06-08] MEDS ORDERED: NORCO 5/325 PO PRN (11:04)
--- NOTE | 2016-06-08 11:08 | Progress Note ---
Assessment and Plan POD #5 Pt feeling well without compl. Abd soft. path pending attempt cl liq diet GI eval for f/u EGD in 6-8 wks (Perf PUD, thickened distal esophagus on CT?) Objective Vital Signs - 12hr 06/08/16 06/08/16 00:00 07:52 Temperature 98.5 F 98.3 F Pulse Rate [ 75 80 Brachial] Respiratory 20 20 Rate Blood Pressure 108/66 121/72 [Left Arm] O2 Sat by Pulse 95 97 Oximetry - Labs 06/05/16 06:07 06/05/16 06:07
[2016-06-08 12:31] LABS: Hematocrit 41.1 % (35.5-45.6); Hemoglobin 13.7 gm/dl (11.8-15.2); Mean Corpuscular HGB Conc 33 % (32-34); Mean Corpuscular Hemoglobin 32 pg (28-32); Mean Corpuscular Volume 96 fl (84-94); Platelet Count 259 K/mm3 (140-440); Red Blood Count 4.28 M/mm3 (3.65-5.03); Red Cell Distribution Width 13.4 % (13.2-15.2); White Blood Count 6.6 K/mm3 (4.5-11.0)
[2016-06-08 12:49] LABS: Anion Gap 19 mmol/L; BUN/Creatinine Ratio 18.33; Blood Urea Nitrogen 11 mg/dL (9-20); Carbon Dioxide 23 mmol/L (22-30); Chloride 99.3 mmol/L (98-107); Glucose 91 mg/dL (75-100); Sodium 137 mmol/L (137-145)
--- NOTE | 2016-06-08 13:11 | Progress Note ---
Assessment and Plan Current antibiotics: Diflucan 100 mg IV q24h 06/04 --> Zosyn 4.5 g IV q8h 06/03 --> Immunosuppressants: Decadron 20 mg IV 1 dose (06/03) ASSESSMENT: Melvin Burns is a 51-year-old male with no chronic medical problems who was admitted to [facility] on with a 1 day history of severe abdominal pain and nausea and a CT of the abdomen showed a pneumoperitoneum. He was taken to the OR and found to have a perforated prepyloric peptic ulcer. Problem list: 1. Perforated prepyloric peptic ulcer -S/P exploratory laparotomy and Alan patching -"Cloudy fluid" described. R/O peritonitis -Surgical culture with no growth. Gram stain showing few polys without organisms. --on empiric coverage with antibiotics including antifungal in view of fungal species can colonized upper GI 2. DJD -Lumbar/sacral spine 3. Hyperglycemia- R/O "Stress" response versus occult DM -Hemoglobin A1c 5.5 4. Anemia -B12 level normal 346, folate level slightly low - 7 mg 5. Esophageal thickening by CT - ? Significance 6. Poor dentition PLAN: 1. Continue Zosyn and fluconazole, this is day 5 2. on discharge patient can go home on augmentin 875mg po Q12 and fluconazole 200mg po Q24H to complete 14 days total 3. will follow Subjective Date of service: 06/08/16 Principal diagnosis: Perforated prepyloric ulcer; peritonitis Interval history: Patient is doing well, no new complaints. He is tolerating his meal Objective - Constitutional Vitals: Selected Entries 06/08/16 07:52 Temperature 98.3 F Pulse Rate [ 80 Brachial] Respiratory 20 Rate O2 Sat by Pulse 97 Oximetry Blood Pressure 121/72 [Left Arm] Blood Pressure 88 Mean [Left Arm] General appearance: Present: no acute distress, cachectic - EENT Eyes: PERRL, EOM intact, no scleral icterus, no conjunctival injection - Neck Neck: supple, normal ROM - Respiratory Respiratory: bilateral: CTA - Breasts Breasts: deferred - Cardiovascular Rhythm: regular Heart Sounds: Present: S1 & S2 Extremities: no ischemia, No edema, Full ROM - Gastrointestinal General gastrointestinal: Present: soft, tender, normal bowel sounds Rectal Exam: deferred - Genitourinary Male genitourinary: deferred - Labs CBC & Chem 7: 06/08/16 12:11 06/08/16 12:11 Labs: Microbiology 06/03/16 Unknown Peritoneal Fluid Surgical Culture - Final 06/03/16 Unknown Peritoneal Fluid Anaerobic Culture - Final 06/03/16 15:12 Peripheral/Venous Blood Culture - Preliminary NO GROWTH AFTER 4 DAYS 06/03/16 15:12 Peripheral/Venous Blood Culture - Preliminary NO GROWTH AFTER 4 DAYS Laboratory Tests 06/08/16 06/08/16 12:11 12:11 WBC 6.6 Plt Count 259 Creatinine 0.6 L Estimated GFR > 60
[2016-06-08] MEDS: DILAUDID IV PRN (13:40)
[2016-06-09 06:05] LABS: Blood Urea Nitrogen 7 mg/dL (9-20); Calcium 8.9 mg/dL (8.4-10.2); Carbon Dioxide 26 mmol/L (22-30); Chloride 102.7 mmol/L (98-107); Glucose 102 mg/dL (75-100); Potassium 4.5 mmol/L (3.6-5.0); Sodium 140 mmol/L (137-145)
[2016-06-09 06:08] LABS: Anion Gap 16 mmol/L
[2016-06-09] MEDS: ZOSYN/NS 4.5GM/100ML 100 ML IV SCH (06:25)
[2016-06-09] MEDS: D5W/0.45% NACL/KCL 30 MEQ 1,000 ML IV SCH (10:01)
[2016-06-09] MEDS: DIFLUCAN 100 ML IV SCH (10:04)
[2016-06-09] MEDS: PROTONIX IV SCH (10:06)
--- NOTE | 2016-06-09 11:37 | Progress Note ---
Assessment and Plan Current antibiotics: Diflucan 100 mg IV q24h 06/04 --> Zosyn 4.5 g IV q8h 06/03 --> Immunosuppressants: Decadron 20 mg IV 1 dose (06/03) ASSESSMENT: Melvin Burns is a 51-year-old male with no chronic medical problems who was admitted to [facility] on with a 1 day history of severe abdominal pain and nausea and a CT of the abdomen showed a pneumoperitoneum. He was taken to the OR and found to have a perforated prepyloric peptic ulcer. Problem list: 1. Perforated prepyloric peptic ulcer -S/P exploratory laparotomy and Alan patching on 06/03/16 -"Cloudy fluid" described. R/O peritonitis -Surgical culture with no growth. Gram stain showing few polys without organisms. --on empiric coverage with antibiotics including antifungal in view of fungal species can colonized upper GI 2. DJD -Lumbar/sacral spine 3. Hyperglycemia- R/O "Stress" response versus occult DM -Hemoglobin A1c 5.5 4. Anemia -B12 level normal 346, folate level slightly low - 7 mg 5. Esophageal thickening by CT - ? Significance 6. Poor dentition PLAN: 1. Continue Zosyn and fluconazole, this is day 6 2. no objection to discharge, patient can go home on augmentin 875mg po Q12 and fluconazole 200mg po Q24H to complete 14 days total (06/17/16) Subjective Date of service: 06/09/16 Principal diagnosis: Perforated prepyloric ulcer; peritonitis Interval history: Patient is without new complaints. He is asking to go home Objective - Constitutional Vitals: Selected Entries 06/09/16 08:00 Temperature 98.4 F Pulse Rate [ 87 Apical] Respiratory 20 Rate O2 Sat by Pulse 97 Oximetry Blood Pressure 104/67 [Left Arm] Blood Pressure 79 Mean [Left Arm] General appearance: Present: no acute distress, cachectic - EENT Eyes: PERRL, EOM intact, no scleral icterus, no conjunctival injection Ears: bilateral: normal - Neck Neck: supple, normal ROM, no enlarged thyroid, no masses or JVD - Respiratory Respiratory: bilateral: CTA - Breasts Breasts: deferred - Cardiovascular Rhythm: regular Heart Sounds: Present: S1 & S2 Extremities: no ischemia, pulses intact - Gastrointestinal General gastrointestinal: Present: soft, tender, normal bowel sounds, other ( surgical site clean) Rectal Exam: deferred - Genitourinary Male genitourinary: deferred - Integumentary Integumentary: clear, warm, dry, no jaundice, no rash - Musculoskeletal Musculoskeletal: strength equal bilaterally - Labs CBC & Chem 7: 06/08/16 12:11 06/09/16 05:13 Labs: Microbiology 06/03/16 Unknown Peritoneal Fluid Surgical Culture - Final 06/03/16 Unknown Peritoneal Fluid Anaerobic Culture - Final 06/03/16 15:12 Peripheral/Venous Blood Culture - Final NO GROWTH AFTER 5 DAYS 06/03/16 15:12 Peripheral/Venous Blood Culture - Final NO GROWTH AFTER 5 DAYS Laboratory Tests 06/08/16 12:11 WBC 6.6 Plt Count 259
--- NOTE | 2016-06-09 14:07 | Progress Note ---
Assessment and Plan POD # 6 Pt feeling well without compl norbert cl liq Abd soft wd clean & dry surgically stable d/c rivera and steristrip incision full liq diet may d/c today if diet norbert & cleared by ID rto this Fri Selected Entries 06/08/16 06/09/16 07:52 08:00 Temperature 98.3 F 98.4 F Pulse Rate [ 87 Apical] Pulse Rate [ 80 Brachial] Respiratory 20 20 Rate Blood Pressure 121/72 104/67 [Left Arm] Objective Vital Signs - 12hr 06/09/16 08:00 Temperature 98.4 F Pulse Rate [ 87 Apical] Respiratory 20 Rate Blood Pressure 104/67 [Left Arm] O2 Sat by Pulse 97 Oximetry - Labs 06/08/16 12:11 06/09/16 05:13 Diabetes panel 06/09/16 Range/Units 05:13 Sodium 140 (137-145) mmol/L Potassium 4.5 (3.6-5.0) mmol/L Chloride 102.7 (98-107) mmol/L Carbon Dioxide 26 (22-30) mmol/L BUN 7 L (9-20) mg/dL Creatinine 0.5 L (0.8-1.5) mg/dL Glucose 102 H (75-100) mg/dL Calcium 8.9 (8.4-10.2) mg/dL Calcium panel 06/09/16 Range/Units 05:13 Calcium 8.9 (8.4-10.2) mg/dL Pituitary panel 06/09/16 Range/Units 05:13 Sodium 140 (137-145) mmol/L Potassium 4.5 (3.6-5.0) mmol/L Chloride 102.7 (98-107) mmol/L Carbon Dioxide 26 (22-30) mmol/L BUN 7 L (9-20) mg/dL Creatinine 0.5 L (0.8-1.5) mg/dL Glucose 102 H (75-100) mg/dL Calcium 8.9 (8.4-10.2) mg/dL Adrenal panel 06/09/16 Range/Units 05:13 Sodium 140 (137-145) mmol/L Potassium 4.5 (3.6-5.0) mmol/L Chloride 102.7 (98-107) mmol/L Carbon Dioxide 26 (22-30) mmol/L BUN 7 L (9-20) mg/dL Creatinine 0.5 L (0.8-1.5) mg/dL Glucose 102 H (75-100) mg/dL Calcium 8.9 (8.4-10.2) mg/dL
--- NOTE | 2016-06-09 14:10 | Discharge Summary ---
Providers - Providers Date of Admission: 06/03/16 17:40 Attending physician: EMERY PATINO 06/05/16 12:30 Consult to Case Management [CONS] Routine Services Needed at Discharge: Search Engine Optimization Manager Notified:: CONCERT PROMOTER 06/08/16 10:34 Consult to Physician [CONS] Routine Consulting Provider: CONNIE MCBRIDE Reason For Exam: perf PUD thickened esophagus on CT? 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 reg diet at home in am as norbert. no lifting over 5lbs x 3 wks. rto this thu. call immediately if any N, V or abd pain) Weight Bearing Status: Non-Weight Bearing Diet: other Wound: keep clean and dry, per wound nurse instructions Follow up with: EMERY PATINO MD [Staff Physician] - 06/13/16
--- NOTE | 2016-06-09 14:44 | Discharge Summary ---
DISCHARGE DIAGNOSIS: Acute abdomen secondary to perforated peptic ulcer. PROCEDURE: While in hospital, emergency exploratory laparotomy with oversewing of perforated peptic ulcer. HOSPITAL COURSE: The patient is a 51-year-old gentleman who presented to the Emergency Room with a recent onset of severe abdominal pain. CT scan of the abdomen revealed free air. The patient was immediately taken to surgery where indeed a perforated peptic ulcer was noted. The patient underwent emergency exploratory laparotomy with successful oversewing of peptic ulcer. Postoperatively, the patient's hospital course has been essentially stable. He was kept n.p.o. on NG suction for the first 3-4 days postop. Subsequent to this, the patient had passed flatus. Abdomen was soft, nontender. He was started on clear liquid diet yesterday, which he tolerated well. During his hospitalization, ID evaluation was obtained and the patient was treated with appropriate antibiotics as per intraoperative wound cultures. Currently, the patient is postop day #6, afebrile and feeling well. As previously mentioned, he is tolerating clear liquid diet without incident. The patient will thus be advanced to a full liquid diet this morning and will tentatively be discharged today if his diet is well tolerated and cleared by Infectious Disease. The patient has been instructed to call me immediately if he has any evidence of nausea, vomiting, abdominal pain, or fever. If not, the patient will be followed up in the office this Thursday. Most recent lab work is all within normal limits including a white count of 6.6, H and H of 13.7 and 41.1. All electrolytes were normal. The patient is being also discharged on p.o. pain meds as well as PPI inhibitors. Also, antibiotics as per ID. The patient will also be followed up by ID as per their office visit appointment. JOB# [id number] RISHABH/NTS
[2016-06-09 15:38] VITALS: BP 99/62
== END 2016-06-09 20:14 | disposition home or self-care (01) | DRG 331 ==
LOC: ED 11:08 → OR 16:14 → 2B-SURG 17:40
PROVIDERS: ADMIT Surgery; ATTEND Surgery
PROC: 0DU907Z Supplement Duodenum with Autologous Tissue Substitute, Open Approach (ICD-10-PCS; principal; 2016-06-03)
DX: K25.5 Chronic or unspecified gastric ulcer with perforation (principal); F17.210 Nicotine dependence, cigarettes, uncomplicated; M47.897 Other spondylosis, lumbosacral region; R73.9 Hyperglycemia, unspecified; D64.9 Anemia, unspecified; K22.9 Disease of esophagus, unspecified; K66.8 Other specified disorders of peritoneum
CPT/HCPCS: 36415; 71010; 74177; 80048; 80053; 81001; 82140; 82550; 82553; 82607; 82747; 83036; 83690; 84484; 85025; 85027; 85610; 85730; 86850; 86900; 86901; 87040; 87075; 87116; 90686; 93005; 93010; 96361; 96374; 96375; 96376; 99406; C9113; J1100; J1170; J1450; J2250; J2405; J2543; J2704; J2710; J3360; J7030; J7120; Q9967